=== PATIENT | male | born 1950 | race Caucasian/White ===

== ENCOUNTER 2017-04-20 14:58 | Emergency (ER) | payer MEDICARE ==
--- NOTE | 2017-04-20 15:58 | NUR ---
ASSESSED THE RESP STATUS 66Y/O MAN WITH OBJECTIVE RESTING DYPSNEA AND AUDIBLE WHEEZING BILATERAL WHEEZING THROUGHOUT ALL ACEVEDO HOWEVER MORE PROMINENT IN THE RIGHT APEX. SPO2 95 AND HR 88. PT ANUJ WELL.
== END 2017-04-20 18:02 | disposition home or self-care (01) ==
LOC: D.ER 14:58
DX: R06.00 Dyspnea, unspecified (principal); I10 Essential (primary) hypertension; F17.200 Nicotine dependence, unspecified, uncomplicated